=== PATIENT | female | born 1950 | race Caucasian/White ===

== ENCOUNTER → 2019-11-15 | Outpatient (CLI) | payer MEDICARE, MEDICAID ==
--- NOTE | 2019-11-15 15:33 | RADIOLOGY REPORT (SQ) ---
EXAM DESCRIPTION: ANKLE RIGHT COMPLETE IMAGES COMPLETED DATE/TIME: 11/15/2019 3:23 pm REASON FOR STUDY: NON-PRS CHRONIC ULCER OF RIGHT ANKLE W FAT LAYER EXPOSED L97.312 NON-PRS CHRONIC ULCER OF RIGHT ANKLE W FAT LAYER EXP E11.621 TYPE 2 DIABETES MELLITUS WITH FOOT ULCER COMPARISON: None. NUMBER OF VIEWS: Three views. TECHNIQUE: AP, lateral, and oblique radiographic images acquired of the right ankle. LIMITATIONS: None. FINDINGS: MINERALIZATION: Normal. BONES: No acute fracture dislocation. No conventional radiographic evidence of osteomyelitis. Presu med posttraumatic changes of the mid fibula. There is soft tissue calcification which may represent myositis ossificans. JOINTS: No effusions. SOFT TISSUES: Soft tissue calcification as described above. OTHER: No other significant finding. IMPRESSION: No conventional radiographic evidence of osteomyelitis. Other findings as described. TECHNICAL DOCUMENTATION: JOB ID: [id number] 2010 [employer]- All Rights Reserved Reading location - IP/workstation name: [email or web address]
[2019-11-15 16:46] LABS: ABSOLUTE BASOPHILS # (AUTO) 0.1 10^3/uL (0.0-0.2); ABSOLUTE EOSINOPHILS # (AUTO) 0.3 10^3/uL (0.0-0.6); ABSOLUTE LYMPHOCYTES (AUTO) 3.7 10^3/uL (0.5-4.7); ABSOLUTE MONOCYTES (AUTO) 0.9 10^3/uL (0.1-1.4); ABSOLUTE NEUT (AUTO) 3.6 10^3/uL (1.7-8.2); BASOPHILS % (AUTO) 0.7 % (0-2); HEMATOCRIT 42.5 % (36.0-47.0); HEMOGLOBIN 14.4 g/dL (12.0-15.5); LYMPHOCYTES % (AUTO) 43.3 % (13-45); MEAN CORPUSCULAR HEMOGLOBIN 30.5 pg (27.0-33.4); MEAN CORPUSCULAR HGB CONC 33.8 g/dL (32.0-36.0); MEAN CORPUSCULAR VOLUME 90 fl (80-97); PLATELET COUNT 360 10^3/uL (150-450); RED BLOOD COUNT 4.71 10^6/uL (3.72-5.28); RED CELL DISTRIBUTION WIDTH 14.8 % (11.5-14.0); TOTAL CELLS COUNTED % (AUTO) 100 %; WHITE BLOOD COUNT 8.6 10^3/uL (4.0-10.5)
[2019-11-15 17:13] LABS: ALBUMIN 3.8 g/dL (3.5-5.0); ALKALINE PHOSPHATASE 83 U/L (38-126); ANION GAP 6 (5-19); ASPARTATE AMINO TRANSFERASE 66 U/L (14-36); BILIRUBIN,TOTAL 0.3 mg/dL (0.2-1.3); BLOOD UREA NITROGEN 25 mg/dL (7-20); C-REACTIVE PROTEIN 13.9 mg/L (<10.0); CALCIUM 9.5 mg/dL (8.4-10.2); CARBON DIOXIDE 27 mmol/L (22-30); CHLORIDE 105 mmol/L (98-107); GLUCOSE 122 mg/dL (75-110); POTASSIUM 4.4 mmol/L (3.6-5.0); TOTAL PROTEIN 7.4 g/dL (6.3-8.2)
[2019-11-15 17:44] LABS: ERYTHROCYTE SEDIMENTATION RATE 76 mm/hr (0-30)
== END ==
LOC: WC 15:04
PROVIDERS: ATTEND Nurse Practitioner Family
DX: E11.622 Type 2 diabetes mellitus with other skin ulcer (principal); L97.312 Non-pressure chronic ulcer of right ankle with fat layer exposed
CPT/HCPCS: 36415; 80053; 85025; 85652; 86140

== ENCOUNTER → 2019-11-24 | Outpatient (CLI) | payer MEDICARE, MEDICAID ==
--- NOTE | 2019-11-24 17:05 | RADIOLOGY REPORT (SQ) ---
EXAM DESCRIPTION: ARTERIAL LOWER EXTREM BILAT IMAGES COMPLETED DATE/TIME: 11/24/2019 12:23 pm REASON FOR STUDY: RT ANKLE ULCER L97.312 NON-PRS CHRONIC ULCER OF RIGHT ANKLE W FAT LAYER EXP COMPARISON: None. TECHNIQUE: Dynamic and static callahan scale and color images acquired of the lower extremity arteries. Additional selected spectral images recorded. LIMITATIONS: None. FINDINGS: RIGHT LEG: INFLOW ARTERIES: Normal, no obstruction evident. FEMORAL ARTERIES:Biphasic common femoral and profunda B, and monophasic at the mid femoral artery. In creased velocities to 320 centimeters/second involving the proximal femoral artery on the basis of pl aque. POPLITEAL ARTERY:Monophasic waveforms. Normal, no velocity elevation to suggest focal stenosis. Kaitlyn l color Doppler evaluation. No aneurysm. PATENT TIBIOPERONEAL TRUNK AND 3 VESSEL RUNOFF: Yes, normal vessels. OTHER: Diminished flow seen within the dorsalis pedis artery. LEFT LEG: INFLOW ARTERIES: Normal, no obstruction evident. FEMORAL ARTERIES:Biphasic waveforms within the common femoral and profunda appy, monophasic at the mi d femoral artery. Increased velocities up to 466 centimeters/second at the proximal profunda on the b asis of atherosclerotic plaque. No flow is demonstrated within the distal femoral artery. Discrete collateral vessels are not demonstrated on today's examination. POPLITEAL ARTERY:Monophasic waveforms. Normal, no velocity elevation to suggest focal stenosis. Kaitlyn l color Doppler evaluation. No aneurysm. PATENT TIBIOPERONEAL TRUNK AND 3 VESSEL RUNOFF: Yes, normal vessels. OTHER: No other significant finding. 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 No flow is demonstrated within the left distal femoral artery; however, no rmal flow seen within the popliteal, presumably on the basis of un examined collaterals. Diminished blood flow seen within the right dorsalis pedis. TECHNICAL DOCUMENTATION: JOB ID: [id number] 2010 [employer]- All Rights Reserved Reading location - IP/workstation name: [email or web address]
== END ==
LOC: SP 09:59
PROVIDERS: ATTEND Nurse Practitioner Family
DX: L97.312 Non-pressure chronic ulcer of right ankle with fat layer exposed (principal)
CPT/HCPCS: 93925

== ENCOUNTER → 2019-12-28 | Outpatient (CLI) | payer MEDICARE, MEDICAID ==
[2019-12-28 10:29] LABS: ABSOLUTE EOSINOPHILS # (AUTO) 0.2 10^3/uL (0.0-0.6); ABSOLUTE LYMPHOCYTES (AUTO) 2.7 10^3/uL (0.5-4.7); ABSOLUTE MONOCYTES (AUTO) 0.9 10^3/uL (0.1-1.4); ABSOLUTE NEUT (AUTO) 5.9 10^3/uL (1.7-8.2); BASOPHILS % (AUTO) 0.5 % (0-2); EOSINOPHILS % (AUTO) 1.7 % (0-6); HEMATOCRIT 41.4 % (36.0-47.0); HEMOGLOBIN 14.5 g/dL (12.0-15.5); LYMPHOCYTES % (AUTO) 28.1 % (13-45); MEAN CORPUSCULAR HGB CONC 34.9 g/dL (32.0-36.0); MEAN CORPUSCULAR VOLUME 89 fl (80-97); MONOCYTES % (AUTO) 8.8 % (3-13); PLATELET COUNT 320 10^3/uL (150-450); RED BLOOD COUNT 4.66 10^6/uL (3.72-5.28); RED CELL DISTRIBUTION WIDTH 14.9 % (11.5-14.0); SEGMENTED NEUTROPHILS % (AUTO) 60.9 % (42-78); TOTAL CELLS COUNTED % (AUTO) 100 %; WHITE BLOOD COUNT 9.7 10^3/uL (4.0-10.5)
[2019-12-28 10:56] LABS: ALBUMIN 3.7 g/dL (3.5-5.0); ALKALINE PHOSPHATASE 86 U/L (38-126); ANION GAP 9 (5-19); ASPARTATE AMINO TRANSFERASE 58 U/L (14-36); BILIRUBIN,DIRECT 0.3 mg/dL (0.0-0.4); BILIRUBIN,TOTAL 0.5 mg/dL (0.2-1.3); BLOOD UREA NITROGEN 14 mg/dL (7-20); C-REACTIVE PROTEIN 26.8 mg/L (<10.0); CARBON DIOXIDE 25 mmol/L (22-30); CHLORIDE 96 mmol/L (98-107); GLUCOSE 114 mg/dL (75-110); POTASSIUM 4.9 mmol/L (3.6-5.0); TOTAL PROTEIN 6.9 g/dL (6.3-8.2)
[2019-12-28 11:11] LABS: ERYTHROCYTE SEDIMENTATION RATE 62 mm/hr (0-30)
--- NOTE | 2019-12-28 12:23 | RADIOLOGY REPORT (SQ) ---
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 NUMBER OF VIEWS: Three views. TECHNIQUE: AP, lateral, and oblique radiographic images acquired of the right ankle. LIMITATIONS: None. FINDINGS: MINERALIZATION: Normal. BONES: No acute fracture or dislocation. No worrisome bone lesions. JOINTS: No effusions. SOFT TISSUES: Linearly oriented soft tissue calcifications are seen in the lower leg. OTHER: No other significant finding. IMPRESSION: Soft tissue calcifications of uncertain etiology. May represent dystrophic calcificatio ns secondary to prior injury. No acute fracture or dislocation. No osteomyelitis. TECHNICAL DOCUMENTATION: JOB ID: [id number] 2010 [employer]- All Rights Reserved Reading location - IP/workstation name: [email or web address]
== END ==
LOC: OD 09:45
PROVIDERS: ATTEND Nurse Practitioner Family
DX: E11.621 Type 2 diabetes mellitus with foot ulcer (principal); L97.312 Non-pressure chronic ulcer of right ankle with fat layer exposed
CPT/HCPCS: 36415; 80053; 83036; 85025; 85652; 86140

== ENCOUNTER → 2020-04-18 | Outpatient (CLI) | payer MEDICARE, MEDICAID ==
--- NOTE | 2020-04-18 11:42 | RADIOLOGY REPORT (SQ) ---
EXAM DESCRIPTION: ANKLE BILATERAL 3 VIEWS MIN IMAGES COMPLETED DATE/TIME: 04/18/2020 11:27 am REASON FOR STUDY: L97.312 NON-PRESSURE CHRONIC ULCER OF RIGHT ANKLE WITH FAT LAYER EXPOSED L97.312 NON-PRS CHRONIC ULCER OF RIGHT ANKLE W FAT LAYER EXP L97.322 NON-PRESSURE CHRONIC ULCER OF LEFT ANKL E W FAT LAYER E11.621 TYPE 2 DIABETES MELLITUS WITH FOOT ULCER COMPARISON: None. NUMBER OF VIEWS: Three views. TECHNIQUE: AP, lateral, and oblique without weight bearing radiographic images acquired of the right and left ankle. LIMITATIONS: None. FINDINGS: MINERALIZATION: Normal. BONES: No acute fracture or dislocation. No worrisome bone lesions. No significant osteophytes. JOINTS: No effusions. SOFT TISSUES: Fairly extensive soft tissue calcification seen overlying the mid the distal fibula thi s is only partly covered on the views of the ankle. OTHER: Small bilateral calcaneal spurs. IMPRESSION: 1. No conventional radiographic evidence of osteomyelitis. 2. Soft tissue calcification on the right which may related to prior trauma. This area is incomplet marbella visualized on the ankle films. TECHNICAL DOCUMENTATION: JOB ID: [id number] [employer]- All Rights Reserved Reading location - IP/workstation name: [email or web address]
[2020-04-18 11:54] LABS: ABSOLUTE EOSINOPHILS # (AUTO) 0.1 10^3/uL (0.0-0.6); ABSOLUTE LYMPHOCYTES (AUTO) 2.4 10^3/uL (0.5-4.7); ABSOLUTE MONOCYTES (AUTO) 0.5 10^3/uL (0.1-1.4); ABSOLUTE NEUT (AUTO) 3.5 10^3/uL (1.7-8.2); BASOPHILS % (AUTO) 0.6 % (0-2); EOSINOPHILS % (AUTO) 1.1 % (0-6); HEMATOCRIT 38.4 % (36.0-47.0); HEMOGLOBIN 13.2 g/dL (12.0-15.5); MEAN CORPUSCULAR HEMOGLOBIN 30.4 pg (27.0-33.4); MEAN CORPUSCULAR HGB CONC 34.4 g/dL (32.0-36.0); MEAN CORPUSCULAR VOLUME 88 fl (80-97); MONOCYTES % (AUTO) 7.7 % (3-13); PLATELET COUNT 316 10^3/uL (150-450); RED BLOOD COUNT 4.34 10^6/uL (3.72-5.28); RED CELL DISTRIBUTION WIDTH 14.8 % (11.5-14.0); SEGMENTED NEUTROPHILS % (AUTO) 53.6 % (42-78); TOTAL CELLS COUNTED % (AUTO) 100 %; WHITE BLOOD COUNT 6.5 10^3/uL (4.0-10.5)
[2020-04-18 12:22] LABS: ALBUMIN 3.8 g/dL (3.5-5.0); ALKALINE PHOSPHATASE 82 U/L (38-126); ANION GAP 8 (5-19); ASPARTATE AMINO TRANSFERASE 61 U/L (14-36); BILIRUBIN,DIRECT 0.2 mg/dL (0.0-0.4); BILIRUBIN,TOTAL 0.4 mg/dL (0.2-1.3); BLOOD UREA NITROGEN 21 mg/dL (7-20); C-REACTIVE PROTEIN 5.5 mg/L (<10.0); CALCIUM 9.6 mg/dL (8.4-10.2); CARBON DIOXIDE 28 mmol/L (22-30); CHLORIDE 101 mmol/L (98-107); GLUCOSE 230 mg/dL (75-110); POTASSIUM 4.5 mmol/L (3.6-5.0); TOTAL PROTEIN 7.5 g/dL (6.3-8.2)
[2020-04-18 12:31] LABS: ERYTHROCYTE SEDIMENTATION RATE 55 mm/hr (0-30)
== END ==
LOC: RAD 11:04
PROVIDERS: ATTEND Nurse Practitioner Family
DX: E11.621 Type 2 diabetes mellitus with foot ulcer (principal); L97.312 Non-pressure chronic ulcer of right ankle with fat layer exposed; L97.322 Non-pressure chronic ulcer of left ankle with fat layer exposed
CPT/HCPCS: 36415; 80053; 83036; 85025; 85652; 86140